=== PATIENT | female | born 1980 | race Caucasian/White ===

== ENCOUNTER 2016-08-10 08:50 | Day surgery (SDC) | payer BC ==
[~2016-08-10 08:50] MED LIST: ABILIFY2 M1 PO; ABILIFY2 MG PO; ADIPEX-P37.5 M PO; EFFEXOR XR75 M1 PO; EFFEXOR75 M1 PO; IBUPROFEN800 MG PO; NORCO 5/325 TAB1 TAB PO; PRENATAL1 EACH PO; REGLAN10 M1 PO; TRI-SPRINTEC1 TAB PO; TUMS500 M1 PO; TYLENOL #31 TA1 PO; VISTARIL25 MG PO; ZOFRAN4 M1 PO
[2016-08-10 09:58] LABS: BASO % 0.6 % (0-2); BASO ABSOLUTE COUNT 0.1 tho/cmm (0.0-0.2); EOS % 1.8 % (0-7); EOSINOPHIL ABSOLUTE COUNT 0.2 tho/cmm (0.0-0.7); HCT-HEMATOCRIT 42.8 % (34.0-49.0); HGB-HEMOGLOBIN 14.8 gm/dl (12.0-15.5); LYMPH % 26.7 % (20-45); LYMPH ABSOLUTE COUNT 2.3 tho/cmm (0.8-4.5); MCH (MEAN CORPUSCULAR HGB) 31.2 pg (28.0-32.0); MCHC MEAN CORPUSCULAR HGB CONC 34.6 % (32.0-36.0); MCV (MEAN CELL VOLUME) 90.1 fl (82.0-96.0); MEAN PLATELET VOLUME 9.8 cmc (9.4-12.4); MONO % 6.4 % (0-12); MONOCYTE ABSOLUTE COUNT 0.5 tho/cmm (0.0-1.2); NEUTROPHIL ABSOLUTE COUNT 5.5 tho/cmm (1.6-8.0); NEUTROPHIL-AUTOMATED 5.5 tho/cmm (1.6-8.0); NEUTROPHILS % 64.5 % (40-80); PLATELET COUNT 222 tho/cmm (150-450); RED BLOOD COUNT 4.75 mil/cmm (4.00-5.20); RED CELL DISTRIBUTION WIDTH 12.4 % (12.4-16.4); WHITE BLOOD COUNT 8.5 tho/cmm (4.0-10.0)
== END 2016-08-10 15:20 ==
LOC: SHSA 08:50 → ORW 11:20 → PACU 12:26 → SHSA 13:30
PROVIDERS: Obstetrics & Gynecology
PROC: 0U5B8ZZ Destruction of Endometrium, Via Natural or Artificial Opening Endoscopic (ICD-10-PCS; principal; 2016-08-10)
PROC: 0HB9XZZ Excision of Perineum Skin, External Approach (ICD-10-PCS; 2016-08-10)
PROC: 0HBAXZZ Excision of Inguinal Skin, External Approach (ICD-10-PCS; 2016-08-10)
DX: N92.0 Excessive and frequent menstruation with regular cycle (principal); L98.7 Excessive and redundant skin and subcutaneous tissue; L91.8 Other hypertrophic disorders of the skin; E66.01 Morbid (severe) obesity due to excess calories; F32.9 Major depressive disorder, single episode, unspecified; F17.210 Nicotine dependence, cigarettes, uncomplicated; Z68.41 Body mass index [BMI] 40.0-44.9, adult; Z79.899 Other long term (current) drug therapy; Z90.89 Acquired absence of other organs; Z90.49 Acquired absence of other specified parts of digestive tract; Z98.51 Tubal ligation status; Z98.890 Other specified postprocedural states
CPT/HCPCS: J1170; J2175; J3010